=== PATIENT | male | born 1965 | race Caucasian/White ===

== ENCOUNTER 2018-03-06 13:57 | Emergency (ER) | payer OTHER, BC ==
[~2018-03-06] VITALS: Ht 175.3 cm; Wt 94.3 kg
[~2018-03-06 13:57] MED LIST: HYDACE5 PO; NAPR220 PO; NAPR550 PO; [UNRECOGNIZED DRUG - REMARK]
[2018-03-08 01:08] LABS: HCV ANTIBODY <0.1 (0.0-0.9); HIV SCREEN 4TH GENERATION WRFX Non Reactive (Non Reactive)
== END 2018-03-06 14:28 | disposition home or self-care (01) ==
LOC: ER 13:57
PROVIDERS: Physician Assistant
DX: S61.231A Puncture wound without foreign body of left index finger without damage to nail, initial encounter (principal); W46.0XXA Contact with hypodermic needle, initial encounter; Z87.891 Personal history of nicotine dependence
CPT/HCPCS: 36415; 84460; 86317; 86703; 86803; 87340; 87389; 99282

== ENCOUNTER → 2018-04-15 | Outpatient (CLI) | payer OTHER, BC ==
[2018-04-16 07:16] LABS: HIV SCREEN 4TH GENERATION WRFX Non Reactive (Non Reactive)
== END | disposition home or self-care (01) ==
LOC: LAB SHORT 10:56 → LAB EV 10:56
PROVIDERS: Family Medicine
DX: Z20.9 Contact with and (suspected) exposure to unspecified communicable disease (principal)
CPT/HCPCS: 86803; 87389

== ENCOUNTER → 2018-06-14 | Outpatient (CLI) | payer OTHER, BC ==
[2018-06-15 08:09] LABS: HIV SCREEN 4TH GENERATION WRFX Non Reactive (Non Reactive)
== END | disposition home or self-care (01) ==
LOC: LAB SHORT 08:22 → LAB EV 08:22
PROVIDERS: General Practice
DX: Z20.9 Contact with and (suspected) exposure to unspecified communicable disease (principal)
CPT/HCPCS: 87389

== ENCOUNTER → 2018-09-09 | Outpatient (CLI) | payer OTHER, BC ==
[2018-09-10 05:09] LABS: HCV ANTIBODY <0.1 (0.0-0.9); HIV SCREEN 4TH GENERATION WRFX Non Reactive (Non Reactive)
== END | disposition home or self-care (01) ==
LOC: LAB SHORT 08:01 → LAB EV 08:01
PROVIDERS: Physician Assistant
DX: Z20.9 Contact with and (suspected) exposure to unspecified communicable disease (principal)
CPT/HCPCS: 84460; 86317; 86803; 87389

== ENCOUNTER 2020-12-04 21:33 | Emergency (ER) | payer BC ==
[~2020-12-04] VITALS: Ht 175.3 cm; Wt 87.1 kg
[2020-12-04 22:22] LABS: BASOPHILS ABSOLUTE AUTO 0.03 K/mm3 (0.00-0.23); BASOPHILS PERCENT AUTO 1 % (0-2); EOSINOPHILS ABSOLUTE AUTO 0.05 K/mm3 (0.00-0.68); EOSINOPHILS PERCENT AUTO 1 % (0-6); Hematocrit 41.3 % (37.0-53.0); Hemoglobin 15.1 g/dL (13.5-17.5); IMMATURE GRAN ABSOLUTE AUTO 0.02 K/mm3 (0.00-0.10); IMMATURE GRAN PERCENT AUTO 0 % (0-1); LYMPHOCYTES ABSOLUTE AUTO 1.87 K/mm3 (0.84-5.20); LYMPHOCYTES PERCENT AUTO 29 % (21-46); MONOCYTES ABSOLUTE AUTO 0.43 K/mm3 (0.16-1.47); MONOCYTES PERCENT AUTO 7 % (4-13); Mean Corpuscular HGB 33.3 pg (26.0-34.0); Mean Corpuscular HGB Conc 36.6 g/dL (31.5-36.5); Mean Corpuscular Volume 91 fL (80-100); NEUTROPHILS ABSOLUTE AUTO 4.05 K/mm3 (1.96-9.15); NEUTROPHILS PERCENT AUTO 63 % (41-73); Platelet Count 153 K/mm3 (150-400); RDW Coefficient Variation 11.9 % (11.7-14.2); RDW Standard Deviation 39.7 fL (35.1-46.3); Red Blood Cell Count 4.53 M/mm3 (4.30-5.90); White Blood Cell Count 6.45 K/mm3 (4.00-11.30)
[2020-12-04 22:36] LABS: Source, Urine Clean Catch
[2020-12-04 22:41] LABS: Alanine Aminotransfer (ALT/SGP 46 U/L (12-78); Albumin, Blood 3.9 g/dL (3.4-5.0); Albumin/Globulin Ratio 1.2 (0.8-1.8); Alk Phos 81 U/L (50-136); Anion Gap 5 mmol/L (6-16); Aspartate Aminotrans (AST/SGOT 20 U/L (12-37); Bilirubin, Total 0.7 mg/dL (0.1-1.0); Blood Urea Nitrogen 20 mg/dL (8-24); Bun/Creatinine Ratio 18.3 (12.0-20.0); CO2, Blood 28 mmol/L (21-32); Calcium, Blood 9.3 mg/dL (8.5-10.1); Chloride, Blood 106 mmol/L (98-108); Creatinine, Blood 1.09 mg/dL (0.60-1.20); Globulin, Blood 3.3 g/dL (2.2-4.0); Glomerular Filtration Rate >60 (60-); Glucose, Blood 246 mg/dL (70-99); Sodium, Blood 139 mmol/L (136-145); Total Protein, Blood 7.2 g/dL (6.4-8.2)
[2020-12-04 22:45] LABS: Bilirubin, Urine Neg (Neg); Blood, Urine Neg (Neg); Glucose Qualitative, Urine 4+ (Neg); Ketones, Urine 2+ (Neg); Leukocyte Esterase, Urine Neg (Neg); Nitrite, Urine Neg (Neg); Protein, Urine Neg (Neg); Specific Gravity, Urine 1.015 (1.003-1.022); Urobilinogen, Urine NORM (Normal)
[2020-12-04 22:51] LABS: Appearance, Urine Clear (Clear); Color, Urine Yellow (P-Yellow)
[2020-12-04] MEDS ORDERED: LOSA50 PO (23:09)
[2020-12-04] MEDS ORDERED: ATORVASTATIN CA20 MG PO (23:09)
[2020-12-04] MEDS ORDERED: SILDENAFIL CIT100 MG PO (23:09)
[2020-12-04] MEDS ORDERED: METFORMIN HCL500 M3 PO (23:09)
== END 2020-12-04 23:35 | disposition home or self-care (01) ==
LOC: ER 21:33
PROVIDERS: Physician Assistant
DX: K65.4 Sclerosing mesenteritis (principal)
CPT/HCPCS: 36415; 74176; 80053; 81003; 85025; 99284-25

== ENCOUNTER 2021-08-25 11:19 | Day surgery (SDC) | payer BC ==
[~2021-08-25] VITALS: Ht 175.3 cm; Wt 84.6 kg
[~2021-08-25 11:19] MED LIST changes: +ATORVASTATIN CA20 MG PO; +LOSA50 PO; +METFORMIN HCL500 M3 PO; +SILDENAFIL CIT100 MG PO
== END 2021-08-25 14:22 | disposition home or self-care (01) ==
LOC: ORSCSDS 11:19
PROVIDERS: Internal Medicine Gastroenterology
PROC: 0DBL8ZX Excision of Transverse Colon, Via Natural or Artificial Opening Endoscopic, Diagnostic (ICD-10-PCS; principal; 2021-08-25 12:45)
PROC: 0DBP8ZX Excision of Rectum, Via Natural or Artificial Opening Endoscopic, Diagnostic (ICD-10-PCS; principal; 2021-08-25 12:45)
DX: Z12.11 Encounter for screening for malignant neoplasm of colon (principal); Z86.010 Personal history of colon polyps; Z83.71 Family history of colonic polyps; D12.3 Benign neoplasm of transverse colon; K62.1 Rectal polyp; I10 Essential (primary) hypertension; R16.1 Splenomegaly, not elsewhere classified; E11.9 Type 2 diabetes mellitus without complications; E78.5 Hyperlipidemia, unspecified
CPT/HCPCS: 82947; 88305; J0330; J0461; J2405; J2704; J7120

== ENCOUNTER 2022-04-12 16:06 | Emergency (ER) | payer OTHER, BC ==
[~2022-04-12] VITALS: Ht 175.3 cm; Wt 87.1 kg
[2022-04-13 12:08] LABS: HCV ANTIBODY Non Reactive (Non Reactive); HIV AB/P24 AG SCREEN Non Reactive (Non Reactive)
== END 2022-04-12 16:43 | disposition home or self-care (01) ==
LOC: ER 16:06
PROVIDERS: Physician Assistant
DX: S61.231A Puncture wound without foreign body of left index finger without damage to nail, initial encounter (principal); W46.0XXA Contact with hypodermic needle, initial encounter; Z79.899 Other long term (current) drug therapy; Z79.84 Long term (current) use of oral hypoglycemic drugs
CPT/HCPCS: 36415; 84460; 86317; 86703; 86803; 87340; 87389; 99282

== ENCOUNTER → 2022-05-31 | Outpatient (CLI) | payer OTHER ==
[2022-06-01 15:07] LABS: HIV AB/P24 AG SCREEN Non Reactive (Non Reactive)
== END | disposition home or self-care (01) ==
LOC: LAB 09:17 → LAB SHORT 09:17
PROVIDERS: Chiropractor
DX: Z20.9 Contact with and (suspected) exposure to unspecified communicable disease (principal)
CPT/HCPCS: 86803; 87389

== ENCOUNTER 2022-09-28 00:32 | Inpatient (IN) | payer BC ==
[~2022-09-28] VITALS: Ht 172.7 cm; Wt 72.6 kg
[2022-09-28 01:08] LABS: BASOPHILS ABSOLUTE AUTO 0.06 K/mm3 (0.00-0.23); BASOPHILS PERCENT AUTO 0 % (0-2); EOSINOPHILS ABSOLUTE AUTO 0.08 K/mm3 (0.00-0.68); EOSINOPHILS PERCENT AUTO 1 % (0-6); Hematocrit 37.7 % (37.0-53.0); Hemoglobin 13.8 g/dL (13.5-17.5); IMMATURE GRAN ABSOLUTE AUTO 0.07 K/mm3 (0.00-0.10); IMMATURE GRAN PERCENT AUTO 0 % (0-1); LYMPHOCYTES ABSOLUTE AUTO 1.78 K/mm3 (0.84-5.20); LYMPHOCYTES PERCENT AUTO 11 % (21-46); MONOCYTES ABSOLUTE AUTO 0.81 K/mm3 (0.16-1.47); MONOCYTES PERCENT AUTO 5 % (4-13); Mean Corpuscular HGB 33.3 pg (26.0-34.0); Mean Corpuscular HGB Conc 36.6 g/dL (31.5-36.5); Mean Corpuscular Volume 91 fL (80-100); Mean Platelet Volume 11.6 fL (9.1-12.4); NEUTROPHILS ABSOLUTE AUTO 14.17 K/mm3 (1.96-9.15); NEUTROPHILS PERCENT AUTO 83 % (41-73); NRBC ABSOLUTE 0.03 K/mm3 (0.00-0.02); NRBC Auto 0.2 /100 WBC (0.0-0.2); Platelet Count 167 K/mm3 (150-400); RDW Coefficient Variation 11.8 % (11.7-14.2); RDW Standard Deviation 39.4 fL (35.1-46.3); Red Blood Cell Count 4.15 M/mm3 (4.30-5.90); White Blood Cell Count 16.97 K/mm3 (4.00-11.30)
[2022-09-28 01:38] LABS: Albumin, Blood 4.5 g/dL (3.4-5.0); Albumin/Globulin Ratio 1.4 (0.8-1.8); Bun/Creatinine Ratio 26.3 (12.0-20.0); Calcium, Blood 9.3 mg/dL (8.5-10.1); Creatinine, Blood 1.14 mg/dL (0.60-1.20); Globulin, Blood 3.3 g/dL (2.2-4.0); Potassium, Blood 4.4 mmol/L (3.5-5.5); Total Protein, Blood 7.8 g/dL (6.4-8.2)
[2022-09-28 01:56] LABS: Source, Urine Foley catheter
[2022-09-28 02:24] LABS: Appearance, Urine Bloody (Clear); Bilirubin, Urine Neg (Neg); Blood, Urine 5+ (Neg); Color, Urine Red (P-Yellow); Glucose Qualitative, Urine Neg (Neg); Ketones, Urine Neg (Neg); Leukocyte Esterase, Urine Neg (Neg); Nitrite, Urine Neg (Neg); Protein, Urine 4+ (Neg); Specific Gravity, Urine 1.015 (1.003-1.022); Urobilinogen, Urine NORM (Normal); pH, Urine 6.5 (5.0-8.0)
[2022-09-28 02:50] LABS: Bacteria Mod /hpf; Red Blood Cells, Urine TNTC /hpf (0-2); Squamous Epithelial Cells Not Seen /hpf (Few); White Blood Cells, Urine 25-50 /hpf (0-5)
[2022-09-28] MEDS ORDERED: TAMSULOSIN HCL0.4 M1 PO (04:20)
[2022-09-28] MEDS ORDERED: NEBIVOLOL HCL5 MG PO (04:20)
[2022-09-28] MEDS ORDERED: METF500 PO (04:24)
[2022-09-28] MEDS ORDERED: FELODIPINE ER5 M2 PO (04:26)
[2022-09-28 05:44] VITALS: BP 114/66
--- NOTE | 2022-09-28 06:24 | NUR ---
SHIFT SUMMARY. PT ARRIVED ON UNIT AT ABOUT 0550. AOX4, PLEASANT, COOPERATIVE WITH CARE. CONTINUOUS BLADDER IRRIGATION RUNNING. NS RUNNING THROUGH IV. SKIN ASSESSMENT UNREMARKABLE. BLADDER SCANS Q6. ACHS. NO PAIN REPORTED AT THIS TIME, PRN PAIN MEDICATIONS AVAILABLE. ADA DIET. CALLS APPROPRIATELY. BED LOCKED IN LOWEST POSITION. CALL LIGHT LEFT WITHIN REACH.
[2022-09-28 07:20] VITALS: BP 109/67
[2022-09-28 15:27] VITALS: BP 125/75
--- NOTE | 2022-09-28 16:03 | NUR ---
SHIFT SUMMARY PT AOX4, SBA DUE TO BLADDER IRRIGATION PROCESS. PT C/O PAIN EARLY IN THE SHIFT, MEDICATED PER THE EMAR. LATER IN THE SHIFT, MEDICATED FOR NAUSEA PER THE EMAR. INTERMITTANT BLADDER IRRIGATION HAS BEEN IN PROCESS ALL DAY. THE PT IS TOLERATING IT WELL OVERALL. FAMILY HAS BEEN AT THE BS ALL SHIFT. PT ASSISTS WHEN LETTING STAFF KNOW THAT HIS REYNOLDS BAG IS FULL OR IF A DRIP BAG IS GETTING LOW. PT HAS HAD NO C/O SOB/CP/V/D. CALL LIGHT WITHIN REACH, BED IN THE LOWEST POSITION. WILL REPORT TO ONCOMING NURSE.
[2022-09-28 19:36] VITALS: BP 118/70
[2022-09-29 03:26] VITALS: BP 128/78
--- NOTE | 2022-09-29 04:48 | NUR ---
SHIFT SUMMARY PT A&Ox4, CALLS AND COMMUNICATES NEEDS APPROPRIATELY. BP STABLE, HR 60-70's, DENIES CP/PRESSURE. NOT ON TELE. SpO2> 92% RA, DENIES SOB. IND IN ROOM. REYNOLDS CATH REMIANS IN PLACE, PATENT DRAINING TO GRAVITY. BLADDER IRRIGATION IN PROGRESS. OUTPUT RANGES FROM PINK TO RED. PT STATED THAT PAIN IS IMPROVING. NO OTHER EVENTS, WILL REPORT TO ONCOMING RN.
[2022-09-29 05:41] LABS: BASOPHILS ABSOLUTE AUTO 0.03 K/mm3 (0.00-0.23); BASOPHILS PERCENT AUTO 1 % (0-2); EOSINOPHILS PERCENT AUTO 2 % (0-6); Hematocrit 32.4 % (37.0-53.0); Hemoglobin 11.8 g/dL (13.5-17.5); IMMATURE GRAN ABSOLUTE AUTO 0.03 K/mm3 (0.00-0.10); IMMATURE GRAN PERCENT AUTO 1 % (0-1); LYMPHOCYTES ABSOLUTE AUTO 1.34 K/mm3 (0.84-5.20); LYMPHOCYTES PERCENT AUTO 21 % (21-46); MONOCYTES ABSOLUTE AUTO 0.63 K/mm3 (0.16-1.47); MONOCYTES PERCENT AUTO 10 % (4-13); Mean Corpuscular HGB 33.2 pg (26.0-34.0); Mean Corpuscular HGB Conc 36.4 g/dL (31.5-36.5); Mean Corpuscular Volume 91 fL (80-100); Mean Platelet Volume 11.9 fL (9.1-12.4); NEUTROPHILS ABSOLUTE AUTO 4.37 K/mm3 (1.96-9.15); NEUTROPHILS PERCENT AUTO 67 % (41-73); Platelet Count 129 K/mm3 (150-400); RDW Coefficient Variation 11.8 % (11.7-14.2); RDW Standard Deviation 39.6 fL (35.1-46.3); Red Blood Cell Count 3.55 M/mm3 (4.30-5.90)
[2022-09-29 06:10] LABS: Albumin, Blood 3.5 g/dL (3.4-5.0); Albumin/Globulin Ratio 1.2 (0.8-1.8); Bilirubin, Total 0.7 mg/dL (0.1-1.0); Bun/Creatinine Ratio 23.4 (12.0-20.0); Calcium, Blood 8.6 mg/dL (8.5-10.1); Creatinine, Blood 0.73 mg/dL (0.60-1.20); Globulin, Blood 2.9 g/dL (2.2-4.0); Potassium, Blood 4.8 mmol/L (3.5-5.5); Total Protein, Blood 6.4 g/dL (6.4-8.2)
[2022-09-29 07:30] VITALS: BP 131/74
[2022-09-29 15:22] VITALS: BP 136/82
--- NOTE | 2022-09-29 15:46 | NUR ---
SHIFT SUMMARY: PATIENT A&OX4. CALM, PLEASANT AND COOPERATTIVE c CARE. USES CALL LIGHT APPROPRIATELY AND ABLE TO MAKE NEEDS KNOWN. DENIES SUPRAPUBIC PAIN/TENDERNESS. DENIES CP/PRESSURE, N/V AND SOB. REYNOLDS CATH, PATENT DRAINING PINKSIH TO RED URINE c SOME TINY CLOTS TO GRAVITY AND BLADDER IRREGATION IN PROGRESS. PATIENT IS INDEPENDENT IN ROOM AND ABLE TO SIT-UP IN THE RECLINER CHAIR FOR ABOUT 2 HRS TODAY. PATIENT FAMILY WAS VISITING T/O THE DAY. EATING AND DRINKING WELL. BS RANGES LOW 200'S TO MID 300'S THIS SHIFT. RECEIVED INSULIN PER EMAR COVERAGE. VITAL SIGNS REVIEWED. CALL LIGHT IN REACH.
--- NOTE | 2022-09-29 17:00 | NUR ---
NOTES: PER DR. LONG TO STOP BLADDER IRREGATION AND MONITOR PATIENT OVERNIGHT FOR ANY S/S AND CHANGES. BLADDER IRREGATION WAS STOP AT 1700. REYNOLDS CATH PATENT, DRAINING YELLOW URINE TO GRAVITY. PATIENT DENIES SUPRAPUBIC PAIN/DISCOMFORT AT THIS TIME. WILL CONTINUE TO MONITOR PATIENT AND REPORT TO ONCOMING NURSE. CALL LIGHT IN REACH.
[2022-09-29 19:48] VITALS: BP 137/77
[2022-09-30 04:48] VITALS: BP 134/81
[2022-09-30 07:37] VITALS: BP 127/79
[2022-09-30] MEDS ORDERED: CEPH500 PO (10:41)
[2022-09-30] MEDS ORDERED: MIRALAX1714 PO (10:43)
[2022-09-30] MEDS ORDERED: DOCUSATE-SENNA PO (10:46)
--- NOTE | 2022-09-30 11:09 | NUR ---
NOTES/DISCHARGE SUMMARY: PATIENT A&OX4. CALM, PLEASANT AND COOPERATIVE c CARE. USES CALL LIGHT APPROPRIATELY AND ABLE TO MAKE NEEDS KNOWN. PATIENT DENIES PAIN, TENDERNESS OR DISCOMFORT TO SUPRAPUBIC AREA. REYNOLDS CATH, PATENT DRAINING SAGE COLOR URINE c SOME BROWN COLOR SEDIMENTS. RECEIVED SCHEDULED MEDS PER EMAR. PATIENT IS EATING AND DRINKING WELL WITHOUT ANY DIFFICULTIES. [facility] [place] [facility] THIS AM. PIV TO R FOREARM DC'D. VITAL SIGNS REVIEWED. PATIENT DISCHARGE HOME. DISCHARGE INSTRUCTIONS PACKET GIVEN TO PATIENT. EDUCATE PATIENT REGARDING ADMITTING DX OF GROSS HEMATURIA, S/S, TX, REYNOLDS CATH, AND NEW MEDICATION TO HOME. PATIENT VERBALIZED UNDERSTANDING AND NO FURTHER QUESTIONS. RX WAS FAXED TO PATIENT PREFERRED PHARMACY ([facility]). ALL PATIENT PERSONAL BELONGINGS WERE SENT HOME c THE PATIENT. PATIENT DECLINE TO BE TRANSPORTED IN A WHEELCHAIR. PATIENT LEFT THE ROOM c SPOUSE DANIEL AT AROUND 1107.
== END 2022-09-30 11:07 | disposition home or self-care (01) | DRG 698 ==
LOC: ER 00:32 → MEDS 04:46 → ENPENDDIS 09-30 10:04 → MEDS 09-30 11:07
PROVIDERS: Family Medicine; Student in an Organized Health Care Education/Training Program; ADMIT Student in an Organized Health Care Education/Training Program
DX: T83.511A Infection and inflammatory reaction due to indwelling urethral catheter, initial encounter (principal); A41.9 Sepsis, unspecified organism; N30.91 Cystitis, unspecified with hematuria; R33.9 Retention of urine, unspecified; N32.0 Bladder-neck obstruction; E11.9 Type 2 diabetes mellitus without complications; I10 Essential (primary) hypertension; Y84.6 Urinary catheterization as the cause of abnormal reaction of the patient, or of later complication, without mention of misadventure at the time of the procedure; E78.5 Hyperlipidemia, unspecified; Z86.010 Personal history of colon polyps; Z98.890 Other specified postprocedural states; Z87.891 Personal history of nicotine dependence; Z79.84 Long term (current) use of oral hypoglycemic drugs; Z79.899 Other long term (current) drug therapy
CPT/HCPCS: 36415; 36416; 51702; 51798; 74177; 80053; 81001; 82947; 85025; 87040; 87077; 87086; 87186; 93005; 93010; 96365-59; 96375-59; 96376-59; 99284-25; A9270; J0696; J1170; J2405; J3010; J7030; J7050; Q9967

== ENCOUNTER 2023-02-12 16:48 | Observation (INO) | payer BC ==
[~2023-02-12] VITALS: Ht 170.2 cm; Wt 72.6 kg
[~2023-02-12 16:48] MED LIST changes: +CEPH500 PO; +DOCUSATE-SENNA PO; +FELODIPINE ER5 M2 PO; +METF500 PO; +MIRALAX1714 PO; +NEBIVOLOL HCL5 MG PO; +TAMSULOSIN HCL0.4 M1 PO
[2023-02-12 19:38] LABS: BASOPHILS ABSOLUTE AUTO 0.12 K/mm3 (0.00-0.23); BASOPHILS PERCENT AUTO 1 % (0-2); EOSINOPHILS ABSOLUTE AUTO 0.15 K/mm3 (0.00-0.68); EOSINOPHILS PERCENT AUTO 1 % (0-6); Hematocrit 40.5 % (37.0-53.0); Hemoglobin 14.3 g/dL (13.5-17.5); IMMATURE GRAN ABSOLUTE AUTO 0.07 K/mm3 (0.00-0.10); IMMATURE GRAN PERCENT AUTO 1 % (0-1); LYMPHOCYTES ABSOLUTE AUTO 3.38 K/mm3 (0.84-5.20); LYMPHOCYTES PERCENT AUTO 31 % (21-46); MONOCYTES ABSOLUTE AUTO 0.65 K/mm3 (0.16-1.47); MONOCYTES PERCENT AUTO 6 % (4-13); Mean Corpuscular HGB 32.4 pg (26.0-34.0); Mean Corpuscular HGB Conc 35.3 g/dL (31.5-36.5); Mean Corpuscular Volume 92 fL (80-100); Mean Platelet Volume 11.3 fL (9.1-12.4); NEUTROPHILS ABSOLUTE AUTO 6.57 K/mm3 (1.96-9.15); NEUTROPHILS PERCENT AUTO 60 % (41-73); Platelet Count 271 K/mm3 (150-400); RDW Coefficient Variation 12.3 % (11.7-14.2); RDW Standard Deviation 41.1 fL (35.1-46.3); Red Blood Cell Count 4.41 M/mm3 (4.30-5.90); White Blood Cell Count 10.94 K/mm3 (4.00-11.30)
[2023-02-12 19:56] LABS: Bun/Creatinine Ratio 18.3 (12.0-20.0); Calcium, Blood 9.2 mg/dL (8.5-10.1); Creatinine, Blood 0.93 mg/dL (0.60-1.20); Potassium, Blood 3.9 mmol/L (3.5-5.5)
[2023-02-13] VITALS (23 sets, daily range): BP systolic 82–147; BP diastolic 43–114
[2023-02-13] MEDS ORDERED: OXYB5 PO (01:10)
--- NOTE | 2023-02-13 07:30 | NUR ---
SUMMARY PT IS A&O X4, VSS, ON RA. CONTINUOUS BLADDER IRRIGATION GOING, LG CLOT NOTED BY ED MD VIA U/S, PINK/RED URINE NOTED IN REYNOLDS BAG, ED RN REPORTED THAT URINE TURNS LIGHT PINK TO CLEAR WHEN CLOTS ACCUMULATE, THIS RN AT BEDSIDE FLUSHING/ASPIRATING CATHETER TO MAINTAIN PATENCY SINCE 0500, REPORT GIVEN TO LILIA HERRERA THIS AM, PT'S IS AT THE BEDSIDE, CALL LIGHT IN REACH
[2023-02-13] MEDS ORDERED: ATOR40TA PO (07:54)
[2023-02-13] MEDS ORDERED: METF500 PO ×2 (07:55)
[2023-02-13] MEDS ORDERED: LOSARTAN POTAS100 M1 PO (07:56)
[2023-02-13] MEDS ORDERED: MIRALAX17 GM PO (07:57)
[2023-02-13] MEDS ORDERED: DOCUZEN 8.6-501 EACH PO (07:58)
[2023-02-13 10:06] LABS: BASOPHILS ABSOLUTE AUTO 0.09 K/mm3 (0.00-0.23); BASOPHILS PERCENT AUTO 1 % (0-2); EOSINOPHILS ABSOLUTE AUTO 0.05 K/mm3 (0.00-0.68); EOSINOPHILS PERCENT AUTO 0 % (0-6); Hematocrit 33.9 % (37.0-53.0); Hemoglobin 12.3 g/dL (13.5-17.5); IMMATURE GRAN ABSOLUTE AUTO 0.07 K/mm3 (0.00-0.10); IMMATURE GRAN PERCENT AUTO 1 % (0-1); LYMPHOCYTES ABSOLUTE AUTO 2.11 K/mm3 (0.84-5.20); LYMPHOCYTES PERCENT AUTO 15 % (21-46); MONOCYTES PERCENT AUTO 7 % (4-13); Mean Corpuscular HGB 32.6 pg (26.0-34.0); Mean Corpuscular HGB Conc 36.3 g/dL (31.5-36.5); Mean Corpuscular Volume 90 fL (80-100); NEUTROPHILS PERCENT AUTO 76 % (41-73); Platelet Count 253 K/mm3 (150-400); RDW Coefficient Variation 12.6 % (11.7-14.2); Red Blood Cell Count 3.77 M/mm3 (4.30-5.90); White Blood Cell Count 14.02 K/mm3 (4.00-11.30)
[2023-02-13 10:18] LABS: Bun/Creatinine Ratio 26.8 (12.0-20.0); Calcium, Blood 9.5 mg/dL (8.5-10.1); Creatinine, Blood 0.78 mg/dL (0.60-1.20); Potassium, Blood 4.2 mmol/L (3.5-5.5)
--- NOTE | 2023-02-13 11:17 | NUR ---
TRANSFERE TO ICU AT [facility] 0830, THE PATIENT CALLED ME TO HIS ROOM. THE PT URINE IRRIGATION TURNED COLOR FROM DARK PINK TO SUSY RED BLOOD. PATIENT WAS HAVING SEVERE PAIN. THE SCREEN MACHINE OPERATOR SILVANA WAS CALLED TO THE ROOM FOR ASSISTANCE. AN ATTEMPT TO OPEN THE OBSTRUCTION WAS MADE USEING THE ACCESS PORT ON THE CATHETER WITH NO RESULT. THE CATHETER BAG WAS REMOVED AND AN ATTEMPT TO FLUSH AND OPEN THE OBSTRUCTION WAS MADE BY THE SCREEN MACHINE OPERATOR AND THIS RN WITH NO RESULTS. THE PT WAS GIVEN 2 DOSES OF IV FENTENYL 50 MCG THEN [address] WHITTINGTON FOR A TOTAL OF 125 MCG. THE PT HAD SOME MODERATE RELIEF FROM THE PAIN. WHEN PREPARING TO REPALCE THE CATH IT STARTED TO FLOW AGAIN WHEN THE BALLOON WAS TAKEN DOWN AND MANY LARGE CLOTS FLOWED OUT. DR. JUSTICE WAS IN TO SEE THE PATIENT AND THE DECISION TO MOVE THE PATIENT TO THE ICU WAS GIVEN. REPORT WAS GIVEN TO GABE THERMOSTATIC CONTROLS SUPERVISOR. AND THE PATIENT WAS TRANSFERED TO THE ICU.
[2023-02-13 15:51] LABS: Hematocrit 37.5 % (37.0-53.0); Hemoglobin 12.2 g/dL (13.5-17.5)
--- NOTE | 2023-02-13 15:59 | NUR ---
1030 PT MOVED INTO ICU 10 WITH ACUTE PAIN TO BLADDER. IRRIGATED WITH STERILE SALINE FLUSH AND PISTON SYRINGE. ONCE SOME SIGNIFICANT AMOUNT OF CLOTS REMOVED HIS PAIN WAS RELIEVED. PULSE STARTED AT 80'S HOWEVER WITH IT DID GO UP HIGH 120 WHEN BP DROPPED. DID AN ALMOST 2 HRS OF FLUSHING AND IRRIGATING. CHANGED OUT THE REYNOLDS CATHETER TO A 24 FR FROM 22 FR CATH. THE CONTINOUS IRRIGATION FLOWED BETTER. PT DID HAVE INTERMITTENT MOMENTS OF VOMITTING.. ZOFRAN HAS BEEN GIVEN AND THEN REGLAN WAS GIVEN IV. HE DID GET FENT 50MCG AT 1100 WHICH MADE HIS VOMITING WORSE. IV FLUIDS WERE STARTED LR AT 250 BUT WITH A DROP IN BP (SEE VITALS) IT TURNED INTO A BOLUS PER DR JUSTICE. PRBC WERE ORDERED TO BE GIVEN. 2 UNITS WERE GIVEN VIA IV PUMP AT 500ML/HR. PT REQUIRED MORE IRRIGATION AND PULSATING FLUSH PULL AND THEN NEEDED BP DROPPED MORE AND HE RECIEVED ANOTHER 2 PRBC ON MASSIVE TRANSFUSSION PUMP. NOTE TO CONTINUE SEE NEW PROGRESS NOTE
[2023-02-13 16:02] LABS: BASOPHILS ABSOLUTE AUTO 0.12 K/mm3 (0.00-0.23); BASOPHILS PERCENT AUTO 1 % (0-2); EOSINOPHILS ABSOLUTE AUTO 0.01 K/mm3 (0.00-0.68); EOSINOPHILS PERCENT AUTO 0 % (0-6); IMMATURE GRAN ABSOLUTE AUTO 0.54 K/mm3 (0.00-0.10); IMMATURE GRAN PERCENT AUTO 3 % (0-1); LYMPHOCYTES ABSOLUTE AUTO 2.12 K/mm3 (0.84-5.20); LYMPHOCYTES PERCENT AUTO 10 % (21-46); MONOCYTES ABSOLUTE AUTO 1.55 K/mm3 (0.16-1.47); MONOCYTES PERCENT AUTO 7 % (4-13); Mean Corpuscular HGB 31.4 pg (26.0-34.0); Mean Corpuscular HGB Conc 32.7 g/dL (31.5-36.5); Mean Platelet Volume 11.5 fL (9.1-12.4); NEUTROPHILS ABSOLUTE AUTO 17.27 K/mm3 (1.96-9.15); NEUTROPHILS PERCENT AUTO 80 % (41-73); Platelet Count 150 K/mm3 (150-400); RDW Standard Deviation 45.3 fL (35.1-46.3); Red Blood Cell Count 3.92 M/mm3 (4.30-5.90); White Blood Cell Count 21.61 K/mm3 (4.00-11.30)
[2023-02-13 16:04] LABS: Mean Corpuscular Volume 96 fL (80-100)
--- NOTE | 2023-02-13 16:55 | NUR ---
"Spiritual Care | Nurse Request Pt. was being prepared for transport to [facility] when this mutual fund manager arrived. At an appropriate moment this Kiln Transfer Operator met with the Pt. and prayed. Stayed with Pt. during transport, when his blood pressure dropped and forced the team to return to ICU to stablize Pt. Spouse and Pts. son arrived. Gave spoort to the family and the ICU staff until the Pt. was loaded on transport. Gave Spouses vehicle information to hospital security, as her car was left in the [facility]. Security verbalized gratitude for the detailed information."
--- NOTE | 2023-02-13 17:06 | NUR ---
[facility] CAME TO GET PATIENT AT 1445. PT WAS ALERT HOWEVER LETHARGIC. HE GOT HIS 4 PRBC BY THE TIME THEY WERE PACKING UP TO LEAVE WITH PT. LOTS OF BLADDER IRRIGATION AND ANOTHER 24 F REYNOLDS WAS PLACED BEFORE THEY LEFT DUE TO INCREASE CLOTTING AND DIFFICULTY FLUSHING MANUALLY ALONG WITH PATIENT BEING IN EXTREME AMOUNT OF PAIN. PAT[facility] WAS [facility] BP DROPPED AND BECAME MORE LETHARGIC. THEY QUICKLY RETURNED AND BROUGHT BACK TO ICU 10. PATIENT RECIEVED ANOTHER IV TO RIGHT POST.. FOREARM AND ANOTHER MASSIVE TRANSFUSSION OF 1 PRBC, 1 WHOLE BLOOD BY [facility] CREW AND ONE PLATLETTS GIVEN BY STAFF, QUICKLY. ANOTHER PRBC WAS GIVEN TO [facility] CREW TO GO WITH PATIENT. ALSO ANOTHER LR AND NS WAS HUNG TO GIVE BOLUS. WHILE THE BLOOD PRODUCTS WERE GIVEN ANOTHER ICU DIRECTOR EXPERIMENTAL MEDICINE IRRIGATED HIS BLADDER MANUALLY FOR AN HOUR. LOTS OF CLOTS WERE REMOVED ALONG WTIH SUSY RED BLOOD. CONTINOUS BLADDER IRRIGATION WAS STILL GOING AND IS STILL GOING UPON SECOND ATTEMPTS TO TRANSFER PATIENT TO [facility] ICU. REPORT WAS CALLED TO ANITA HERRERA ICU IN [facility] 1635. PATIENT IN ROUTE TO THEM AT THIS TIME. NOTE UP UPDATE THE PT DID GET TORADOL AND DILAUDID RIGHT BEFORE SECOND 24 FR REYNOLDS WAS PLACED. AND PATIENT DID GET INSULIN 3 DIFFERENT TIMES TODAY DUE TO HIGH GLUCOSE READINGS IN THE 400'S SEE LAB VALUES. THE TEAM WAS AMAZING AT WORKING TOGETHER TO GIVE ABOVE AND BEYOND CARE TO CRISTINA.
== END 2023-02-13 16:20 | disposition short-term general hospital (02) ==
LOC: ER 16:48 → MEDS 16:49 → ICUE 16:49 → MEDS 02-13 05:02 → ICUE 02-13 10:25
PROVIDERS: Internal Medicine; Student in an Organized Health Care Education/Training Program; ADMIT Internal Medicine
DX: R33.9 Retention of urine, unspecified (principal); I10 Essential (primary) hypertension; E11.9 Type 2 diabetes mellitus without complications; Z79.84 Long term (current) use of oral hypoglycemic drugs
CPT/HCPCS: 36415; 36430; 51700; 51702; 51798; 80048; 82947; 83036; 85014; 85018; 85025; 86850; 86900; 86901; 86923; 96374-59; 96375; 96375-59; 96376; 96376-59; 99285-25; A9270; G0378; J1170; J1815; J1885; J2405; J2765; J3010; J7030; J7120; P9016; P9035

== ENCOUNTER 2023-03-05 16:12 | Emergency (ER) | payer BC ==
[~2023-03-05] VITALS: Ht 175.3 cm; Wt 83.9 kg
[~2023-03-05 16:12] MED LIST changes: +ATOR40TA PO; +DOCUZEN 8.6-501 EACH PO; +LOSARTAN POTAS100 M1 PO; +MIRALAX17 GM PO; +OXYB5 PO
[2023-03-05 16:59] LABS: BASOPHILS ABSOLUTE AUTO 0.03 K/mm3 (0.00-0.23); BASOPHILS PERCENT AUTO 1 % (0-2); EOSINOPHILS ABSOLUTE AUTO 0.06 K/mm3 (0.00-0.68); EOSINOPHILS PERCENT AUTO 1 % (0-6); Hematocrit 39.4 % (37.0-53.0); Hemoglobin 13.6 g/dL (13.5-17.5); IMMATURE GRAN ABSOLUTE AUTO 0.02 K/mm3 (0.00-0.10); IMMATURE GRAN PERCENT AUTO 0 % (0-1); LYMPHOCYTES ABSOLUTE AUTO 1.39 K/mm3 (0.84-5.20); LYMPHOCYTES PERCENT AUTO 22 % (21-46); MONOCYTES ABSOLUTE AUTO 0.45 K/mm3 (0.16-1.47); MONOCYTES PERCENT AUTO 7 % (4-13); Mean Corpuscular HGB 31.1 pg (26.0-34.0); Mean Corpuscular HGB Conc 34.5 g/dL (31.5-36.5); Mean Corpuscular Volume 90 fL (80-100); Mean Platelet Volume 10.3 fL (9.1-12.4); NEUTROPHILS ABSOLUTE AUTO 4.26 K/mm3 (1.96-9.15); NEUTROPHILS PERCENT AUTO 69 % (41-73); Platelet Count 217 K/mm3 (150-400); RDW Coefficient Variation 14.2 % (11.7-14.2); RDW Standard Deviation 46.8 fL (35.1-46.3); Red Blood Cell Count 4.38 M/mm3 (4.30-5.90); White Blood Cell Count 6.21 K/mm3 (4.00-11.30)
[2023-03-05 17:25] LABS: Albumin, Blood 4.3 g/dL (3.4-5.0); Albumin/Globulin Ratio 1.3 (0.8-1.8); Bun/Creatinine Ratio 17.8 (12.0-20.0); Calcium, Blood 9.5 mg/dL (8.5-10.1); Creatinine, Blood 0.68 mg/dL (0.60-1.20); Globulin, Blood 3.3 g/dL (2.2-4.0); Potassium, Blood 3.8 mmol/L (3.5-5.5); Total Protein, Blood 7.6 g/dL (6.4-8.2)
[2023-03-05 17:53] LABS: International Normalized Ratio 1.11; Prothrombin Time Results 11.6 Sec (9.7-11.5)
[2023-03-05 20:23] VITALS: BP 153/88
[2023-03-05 20:27] LABS: Source, Urine Foley catheter
[2023-03-05 20:37] LABS: Appearance, Urine Bloody (Clear); Bilirubin, Urine Neg (Neg); Blood, Urine 5+ (Neg); Color, Urine Red (P-Yellow); Glucose Qualitative, Urine Neg (Neg); Ketones, Urine 2+ (Neg); Leukocyte Esterase, Urine 1+ (Neg); Nitrite, Urine Neg (Neg); Protein, Urine 3+ (Neg); Urobilinogen, Urine NORM (Normal)
[2023-03-05 20:45] LABS: Red Blood Cells, Urine TNTC /hpf (0-2)
[2023-03-05 20:47] LABS: Bacteria Mod /hpf; Granular Casts 0-2 /lpf (0); Squamous Epithelial Cells Rare /hpf (Few)
== END 2023-03-05 20:24 | disposition home or self-care (01) ==
LOC: ER 16:12
PROVIDERS: Emergency Medicine; Physician Assistant
DX: N13.9 Obstructive and reflux uropathy, unspecified (principal); R33.8 Other retention of urine; Z79.84 Long term (current) use of oral hypoglycemic drugs; Z79.899 Other long term (current) drug therapy; Z88.8 Allergy status to other drugs, medicaments and biological substances
CPT/HCPCS: 51702; 51798; 80053; 81001; 85025; 85610; 87086; 96374; 99283-25; A9270; J3010

== ENCOUNTER → 2024-02-04 | Outpatient (CLI) | payer BC | LOC: LAB 12:34 → LAB SHORT 12:34 → PLD 12:34 | DX: D23.112 Other benign neoplasm of skin of right lower eyelid, including canthus (principal); D48.5 Neoplasm of uncertain behavior of skin | CPT/HCPCS: 88305 ==